=== PATIENT | male | born 1950 | race Caucasian/White ===

== ENCOUNTER 2020-02-10 10:28 | Emergency (ER) | payer OTHER ==
[~2020-02-10] VITALS: Ht 182.9 cm; Wt 74.8 kg
[2020-02-10 11:20] LABS: BASOPHILS ABSOLUTE AUTO 0.05 K/mm3 (0.00-0.23); BASOPHILS PERCENT AUTO 1 % (0-2); EOSINOPHILS ABSOLUTE AUTO 0.08 K/mm3 (0.00-0.68); EOSINOPHILS PERCENT AUTO 1 % (0-6); Hematocrit 46.6 % (37.0-53.0); Hemoglobin 15.9 g/dL (13.5-17.5); IMMATURE GRAN ABSOLUTE AUTO 0.05 K/mm3 (0.00-0.10); IMMATURE GRAN PERCENT AUTO 1 % (0-1); LYMPHOCYTES PERCENT AUTO 19 % (21-46); MONOCYTES ABSOLUTE AUTO 1.06 K/mm3 (0.16-1.47); MONOCYTES PERCENT AUTO 10 % (4-13); Mean Corpuscular HGB 31.6 pg (26.0-34.0); Mean Corpuscular HGB Conc 34.1 g/dL (31.5-36.5); Mean Corpuscular Volume 93 fL (80-100); Mean Platelet Volume 8.5 fL (9.1-12.4); NEUTROPHILS ABSOLUTE AUTO 7.35 K/mm3 (1.96-9.15); NEUTROPHILS PERCENT AUTO 69 % (41-73); Platelet Count 249 K/mm3 (150-400); RDW Coefficient Variation 12.6 % (11.7-14.2); RDW Standard Deviation 43.2 fL (35.1-46.3); Red Blood Cell Count 5.03 M/mm3 (4.30-5.90); White Blood Cell Count 10.59 K/mm3 (4.00-11.30)
[2020-02-10 11:44] LABS: Alanine Aminotransfer (ALT/SGP 28 U/L (12-78); Albumin/Globulin Ratio 1.4 (0.8-1.8); Alk Phos 84 U/L (50-136); Anion Gap 7 mmol/L (6-16); Aspartate Aminotrans (AST/SGOT 36 U/L (12-37); Bilirubin, Total 1.2 mg/dL (0.1-1.0); Blood Urea Nitrogen 7 mg/dL (8-24); Bun/Creatinine Ratio 8.1 (12.0-20.0); C-REACTIVE PROTEIN, EXT RANGE 0.456 mg/dL (0.000-0.300); CO2, Blood 29 mmol/L (21-32); Calcium, Blood 9.5 mg/dL (8.5-10.1); Chloride, Blood 95 mmol/L (98-108); Creatinine, Blood 0.86 mg/dL (0.60-1.20); Globulin, Blood 2.9 g/dL (2.2-4.0); Glomerular Filtration Rate >60 (60-); Glucose, Blood 85 mg/dL (70-99); Potassium, Blood 4.2 mmol/L (3.5-5.5); Sodium, Blood 131 mmol/L (136-145); Total Protein, Blood 6.9 g/dL (6.4-8.2); Troponin I 0.015 ng/mL (0.000-0.040)
[2020-02-10] MEDS ORDERED: ALBU3IS INH (11:55)
[2020-02-10] MEDS ORDERED: ALBU90OI INH (11:55)
[2020-02-10] MEDS ORDERED: ALLO300 PO (11:57)
[2020-02-10] MEDS ORDERED: Aspirin EC81 MG PO (11:57)
[2020-02-10] MEDS ORDERED: ATOR40TA PO (11:57)
[2020-02-10] MEDS ORDERED: ASCO500 PO (11:57)
[2020-02-10] MEDS ORDERED: GABA300 PO (11:58)
[2020-02-10] MEDS ORDERED: BUSP10 PO (11:58)
[2020-02-10] MEDS ORDERED: SYMBICORT 160-4.6 GM INH (11:58)
[2020-02-10] MEDS ORDERED: FLUT.05NI (11:58)
[2020-02-10] MEDS ORDERED: MELA3 PO (11:59)
[2020-02-10] MEDS ORDERED: HYDHCL25 PO (11:59)
[2020-02-10] MEDS ORDERED: ALLERCLEAR10 MG PO (11:59)
[2020-02-10] MEDS ORDERED: TAMS.4ER PO (12:00)
[2020-02-10] MEDS ORDERED: B-1100 M1 PO (12:00)
[2020-02-10] MEDS ORDERED: Risperdal0.5 MG PO (12:00)
[2020-02-10] MEDS ORDERED: Inderal 20 mg T20 MG PO (12:00)
[2020-02-10] MEDS ORDERED: B-121000 MC3 PO (12:01)
[2020-02-10] MEDS ORDERED: SPIRIVA RESPIMAT4 G2 INH (12:01)
[2020-02-10] MEDS ORDERED: ZOLP10 PO (12:01)
[2020-02-10] MEDS ORDERED: Prednisone20 MG PO (12:11)
== END 2020-02-10 12:44 | disposition home or self-care (01) ==
LOC: ER 10:28
PROVIDERS: Emergency Medicine
DX: J44.1 Chronic obstructive pulmonary disease with (acute) exacerbation (principal); Z79.82 Long term (current) use of aspirin; Z79.51 Long term (current) use of inhaled steroids; Z79.52 Long term (current) use of systemic steroids; Z79.899 Other long term (current) drug therapy
CPT/HCPCS: 71045; 80053; 83880; 84145; 84484; 85025; 86140; 93005; 93010; 94640; 99285-25; J7512